=== PATIENT | male | born 2000 | race Caucasian/White ===

== ENCOUNTER 2020-11-17 07:43 | Outpatient (REF) | payer OTHER, SELFPAY | END 2020-11-17 07:44 | disposition home or self-care (01) | LOC: HO.LAB 07:43 | PROVIDERS: Visit Provider Internal Medicine | DX: Z20.822 Contact with and (suspected) exposure to COVID-19 (principal) | CPT/HCPCS: C9803; U0003; U0005 ==

== ENCOUNTER 2021-04-21 12:35 | Outpatient (REF) | payer OTHER, SELFPAY | END 2021-04-21 12:36 | disposition home or self-care (01) | LOC: HO.LAB 12:35 | PROVIDERS: Visit Provider Internal Medicine | DX: Z20.822 Contact with and (suspected) exposure to COVID-19 (principal) | CPT/HCPCS: C9803; U0003; U0005 ==

== ENCOUNTER 2025-02-25 17:06 | Emergency (ER) | payer SELFPAY ==
[2025-02-25 17:17] VITALS: BP 145/89; PULSE 89; RESP 18; TEMP 36.6; O2SAT 97; BMI 34.7
--- NOTE | 2025-02-25 17:57 | ED.GENADULT ---
HPI - General Adult General Chief complaint: Wound/Laceration Stated complaint: laceration lt wrist Time Seen by Provider: 02/25/25 17:53 Source: patient, RN notes reviewed and old records reviewed Mode of arrival: ambulatory Limitations: no limitations History of Present Illness ED Provider: Joshua [facility] narrative: Patient is a 24-year-old male presenting to the emergency department with laceration to left wrist on the ulnar side. States that he was attempting to fix a window when he accidentally cut himself. Unsure last Tdap. Denies any weakness, numbness, tingling. complaint: laceration Onset (ago): hour(s) Related Data Allergies Allergy/AdvReac Type Severity Reaction Status Date / Time No Known Allergies (No Known Allergy Verified 02/25/25 17:20 Allergies*) Review of Systems Review of Systems: as per hpi Yes all other systems are reviewed and are negative Constitutional: Constitutional: Reports as per HPI [facility] Social History Social History Advance Directives: No Advance Directives Information Provided: No Physical Exam ED Vital Signs: Vital Signs - 24 hr 02/25/25 17:17 02/25/25 18:42 Temperature 97.9 F 97.9 F Pulse Rate 89 89 Respiratory Rate 18 18 Blood Pressure 145/89 H 145/89 H Pulse Oximetry 97 97 Oxygen Delivery Method Room Air Room Air BMI result Body Mass Index 34.7 Vital signs have been reviewed and appear to be correct. Blood pressure normal. Heart rate normal. Respiratory rate normal. Temperature normal. Oxygen saturation normal. Const General: cooperative, healthy appearing and no acute distress Orientation/consciousness: oriented to person, oriented to place, oriented to time and patient oriented x3 Limitations: no limitations [facility] Head: Yes normocephalic and Yes atraumatic Ears: external ears normal General nose exam: Normal external nose present Face and sinus: Yes face symmetric Mouth: oropharynx normal and moist mucous membranes Throat: Yes uvula midline Eyes Pupils: Equal, round and reactive pupils present Neck Neck: Yes normal visual inspection and Yes supple Resp Effort & Inspection: normal respiratory effort and able to speak in complete sentences Auscultation: clear to auscultation bilaterally Cardio Rate: regular rate Rhythm: regular rhythm Heart sounds: S1 normal heart sound present and S2 normal heart sound present GI Palpation (GI): Soft to palpation and nontender Auscultation: normoactive bowel sounds General: Yes no CVA tenderness Back/Spine/Pelvis Back: no CVA tenderness Skin General skin exam: elasticity normal and turgor normal Neuro General: oriented to person, oriented to place, oriented to time, patient oriented x3, moves all extremities, no focal motor deficits and CN's II-XI intact bilaterally Cranial nerves: Yes Equal, round and reactive pupils present Cognition (Neuro): normal cognition Extrem General: Yes full ROM, Yes no pedal edema and Yes no calf tenderness Left upper extremity: wrist forearm distal lateral Details: normal to inspection, normal ROM, radial pulse present and other (2cm linear laceration to ulnar aspect of wrist) Psych Mental Status: mental status grossly normal Affect: normal affect Thought process: Normal thought process present Medications Administered Discontinued Medications Generic Name Dose Route Start Last Admin Trade Name Freq PRN Reason Stop Dose Admin Bacitracin 1 appl 02/25/25 17:56 02/25/25 18:03 Bacitracin Oint 0.9 Gm Packet TOPICAL 02/25/25 17:57 1 appl ONCE ONE Administration Protocol Diphtheria/Tetanus/Acell Pertussis 0.5 ml 02/25/25 17:58 02/25/25 18:03 Diphth,Pertus(Acell),Tet Adult 0.5 Ml Syringe IM 02/25/25 17:59 0.5 ml .ONCE ONE Administration Lidocaine HCl 5 ml 02/25/25 17:56 02/25/25 18:03 Lidocaine Hcl 1 % Mpf 5 Ml Vial INFILTRATI 02/25/25 17:57 5 ml ONCE ONE Administration Procedures Laceration Laceration 1: Site: upper extremity Side (If applicable): left Size (cm): 2 Description: linear Depth: simple, single layer Local Anesthetic: lidocaine 1% Amount of anesthesia used (mL): 3 Pre-repair: wound explored, irrigated extensively and deep structures intact Skin layer closed with: other (prolene) Size (cm): 5-0 Number of sutures: 6 Technique: simple, interrupted Medical Decision Making Medical Decision Making MDM Narrative: Patient is a 24-year-old male presenting to the emergency department with laceration to left wrist on the ulnar side. On exam patient is awake, A+Ox3, VS WNL, afebrile, normal neurological exam without focal deficits, physical exam findings as above. Given reported symptoms and physical exam findings, initial differential includes but is not limited to laceration. No evidence of tendon or ligamentous injury. Lac repaired as per procedure note, patient tolerated well. Tdap updated at today's visit. Wound care instructions and return precautions discussed at bedside. Patient verbalized understanding of and agreement with plan. Differential Diagnosis Differential Diagnoses: The differential diagnosis associated with the presentation includes as per mdm Admission/Observation Consideration of admission/observation: Escalation of care including admission/observation considered Patient would have been admitted to the hospital had their clinical presentation warranted hospital admission. External Record Review External record reviewed: Inpatient record, Office record and Outpatient record Discharge Plan Discharge Clinical Impression: Laceration of left wrist Patient Disposition: Home, Self-Care Instructions: Care For Your Stitches (DC), Laceration (DC), Stitches Removal (ED) Additional Instructions: You have been evaluated in the emergency department today for a laceration to your wrist. Your laceration was repaired in the emergency department with 6 sutures. Please keep the area surrounding the laceration clean and dry and keep dressing in place for the next 24 hours. After that please change the dressing and assess the wound daily. Do not submerge the wound in water until the stitches has been removed and the wound has fully healed (no washing dishes, swimming, hot tubs, etc. and ESPECIALLY no outdoor water). Keep the area out of direct sunlight for the next 6 months to help prevent scarring. You should have the sutures removed in 7-10 days. If you develop fever, redness, swelling at the site of your laceration, or thick yellow drainage please come back to the ER for a wound check. Interventions: ED Discharge Assessment Last Done: 02/25/25 18:42 Discharge Date/Time: 02/25/25 18:43 Print Language: Armenian
[2025-02-25] MEDS: Lidocaine HCl 1 % MPF 5 ML VIAL INFILTRATI (18:03)
[2025-02-25] MEDS: Diphth,Pertus(ACell),Tet Adult 0.5 ML SYRINGE IM (18:03)
--- OUTSIDE RECORDS SUMMARY | 2025-02-25 18:10 | XMS_ITS | Clinical Summary ---
Author Organization [facility] Address [address] [place] [phone] Phone Care Team Providers Care Humanities Department Chair Name Role Phone Lambert Rosa MD Primary Care Provider Unavailabl e Immunizations Immunization Administration Dates Next Due DTaP 5 05/08/2003, 1,1999,1999 ,1999 Hep B, ped/adol 11/15/2000,03/23/2000,1999 Hib (PRP-T) 06/18/2000,1999,1999 ,1999 IPV 05/08/2003,03/23/2000,1999 ,1999 Influenza, injectable, trivalent 008,06/17/2004,04/27/2003,07/19/2000 ,06/18/2000 MMR 05/08/2003,06/18/2000 Pneumococcal Conjugate 06/18/2000,03/23/2000 Varicella 09/24/2008,03/23/2000 Family History Relation Name Status Comments Mother Alive Mother: Alive a nd well Other Family history of Elevated cholesterol, Family history of Diabetes mellitus, Family history of Asthma, Family history of Migraines, Family history of Obesity Sister Alive Sister: Alive a nd well Social History Tobacco Use Types Packs/Day Years Used Date Smoking Tobacco: Never Assessed Sex and Gender Information Value Date Recorded Sex Assigned at Not on file Legal Sex Male 4:41 PM EDT Gender Identity Not on file Sexual Orientation Not on file Last Filed Vital Signs Vital Sign Reading Time Taken Comments Blood Pressure 90/62 11/25/2009 12:00 AM EDT Pulse - - Temperature 36.6 C (97.8 F) 11/16/2010 12:00 AM EDT Respiratory Rate - - Oxygen Saturation - - Inhaled Oxygen Concentration - - Weight 49.9 kg (110 lb) 11/16/2010 12:00 AM EDT Height 145.4 cm (4' 9.25 ) 11/25/2009 12:00 AM E DT Body Mass Index - - Plan of Treatment Health Maintenance Due Date Last Done Comments DTaP,Tdap,and Td Vaccines (6 - Tdap) 2010 05/08/2003, 10/08/2000, 1999, Additional history exists HPV Vaccines (1 - Male 3-dose series) 2014 COVID-19 Vaccine (1 - season) 2024 Influenza Vaccines (#1) 2025 07/18/19, 06/17/2004, 04/27/2003, Additional history exists HIB Vaccines Completed 06/18/2000, 10/08, 1999, Additional history exists Pneumococcal Vaccine Completed 06/18/2000, 03/23/20 Hepatitis B Vaccines Completed 11/15/2000, 03/23/2000, 1999 IPV Vaccines Completed 05/08/2003, 03/09, 1999, Additional history exists MMR Vaccines Completed 05/08/2003, 06/18/2000 Varicella Vaccines Completed 09/24/2008, 03/23/2000 Hepatitis A Vaccines Aged Out No long er eligible based on patient's age to complete this topic Men B Vaccine Aged Out No longer elig ible based on patient's age to complete this topic Meningococcal Vaccine Aged Out No robert tod eligible based on patient's age to complete this topic Care Teams Humanities Department Chair Relationship Specialty Start Date End Date Lambert Rosa MD PCP - General 02/16/17
[2025-02-25 18:42] VITALS: BP 145/89; PULSE 89; RESP 18; TEMP 36.6; O2SAT 97
== END 2025-02-25 18:43 | disposition home or self-care (01) ==
PROVIDERS: Emergency Provider Emergency Medicine Emergency Medical Services
DX: S61.512A Laceration without foreign body of left wrist, initial encounter (principal); M25.532 Pain in left wrist; W25.XXXA Contact with sharp glass, initial encounter; Y93.9 Activity, unspecified; Y92.9 Unspecified place or not applicable; Y99.8 Other external cause status; Z23 Encounter for immunization
CPT/HCPCS: 12001; 90471; 90715; 99282; 99284; J2003

== ENCOUNTER 2025-03-04 15:45 | Emergency (ER) | payer SELFPAY ==
[2025-03-04 15:48] VITALS: BP 130/78; PULSE 89; RESP 18; TEMP 36.8; O2SAT 97; BMI 34.3
--- NOTE | 2025-03-04 15:53 | ED.WOUNDLAC ---
HPI - Wound/Laceration General Chief Complaint: Wound/Laceration Stated Complaint: to remove stitches wrist Time Seen by Provider: 03/04/25 15:58 Source: patient and RN notes reviewed Mode of arrival: ambulatory Limitations: no limitations History of Present Illness ED Provider: Eda Monroy PA-C HPI narrative: This is a [id number]-hte-male who presents to the ER for suture removal. Pt states that 1 week ago he had lacerated his left wrist and had sutures placed. He states that he had no complications with the sutures, but does report increased redness starting this morning after applying antibiotic ointment on it. Reports no drainage. No fevers or chills. No other complaints or concerns at this time. Associated symptoms: none Related Data Previous Rx's ?Medication ?Instructions ?Recorded cephalexin 500 mg capsule 500 mg PO QID 5 days #20 caps 03/04/25 Allergies Allergy/AdvReac Type Severity Reaction Status Date / Time No Known Allergies (No Known Allergy Verified 03/04/25 15:50 Allergies*) Review of Systems Review of Systems: Yes all other systems are reviewed and are negative Constitutional: Constitutional: Reports as per [facility] Social History Social History Advance Directives: No Advance Directives Information Provided: No Do you have a plan to hurt others: No Plan Physical Exam Exam: Exam: General: Awake, alert, and oriented X3. No acute distress. HEENT: Normal inspection CVS: Normal heart rate and rhythm. Pulses normal. Respiratory: No respiratory distress Skin: Warm, dry, no rashes noted to exposed skin. Normal skin color. Normal skin turgor. Extremities: Full ROM of the left wrist without difficulty. Neuro: Oriented X 3. No motor deficit. No sensory deficit. Left wrist with well healing wound noted with mild erythema noted, sutures in place, no drainage. Vital Signs: Vital Signs: Last Vital Signs Temp 98.2 F 03/04/25 16:16 Pulse 89 03/04/25 16:16 Resp 18 03/04/25 16:16 BP 130/78 03/04/25 16:16 Pulse Ox 97 03/04/25 16:16 O2 Del Method Room Air 03/04/25 16:16 BMI result Body Mass Index 34.3 Medical Decision Making Medical Decision Making MDM Narrative: This is a 68-pfts-ror-male who presents to the ER with concerns of left wrist suture removal. On arrival, vss. Pt is well appearing under no acute distress. Wound is well healing however mild erythema noted, no evidence of dehiscence. Unclear if redness is from antibiotic ointment he used this morning. Discussed with my attending physician, Dr. Reyes. Concern for ?early infection therefore sutures removed as we do not want to trap infection if this is the case. pt tolerated procedure well. Discharged on keflex. Discussed return precautions. Given wound care instructions, Pt stable for d.c. Differential Diagnosis Differential Diagnoses: The differential diagnosis associated with the presentation includes cellulitis, wound dehiscence, suture removal, wound check Discharge Plan Discharge Clinical Impression: Visit for suture removal, Cellulitis Patient Disposition: Home, Self-Care Instructions: Stitches Removal (ED) Additional Instructions: You were seen in the ER for a suture removal. You do have some mild evidence of the start of a skin infection. Please take prescribed antibiotic as directed. Finish the entire course. Keep wound clean and dry. If any new or worsening symptoms occur including increased redness, swelling, fevers, worsening swelling, please seek emergent care. Prescriptions: New cephalexin 500 mg capsule 500 mg PO QID 5 Days Qty: 20 0RF Interventions: ED Discharge Assessment Last Done: 03/04/25 16:16 Discharge Date/Time: 03/04/25 16:16 Print Language: Bruneian
[2025-03-04 16:16] VITALS: BP 130/78; PULSE 89; RESP 18; TEMP 36.8; O2SAT 97
--- OUTSIDE RECORDS SUMMARY | 2025-03-04 17:01 | XMS_ITS | Clinical Summary ---
Author Organization [facility] Address [address] [place] [phone] Phone Care Team Providers Care Production Inspector Name Role Phone Lambert Rosa MD Primary [...] age to complete this topic Care Teams Production Inspector Relationship Specialty Start Date End Date Lambert Rosa MD PCP - General 02/16/17
--- OUTSIDE RECORDS SUMMARY | 2025-03-04 17:01 | XMS_ITS | Encounter Summary ---
Author Organization [facility] Address [address] [place] [phone] Phone Care Team Providers Care Steam Pressure Chamber Operator Name Role Phone Lambert Rosa MD Primary Care Provider Unavailabl e Encounter Details Date Type Department Care Team (Late st Contact Info) Description 02/22/2017 Conversion Encounter [place] - [address] [id number] Social History Tobacco Use Types Packs/Day Years Used Date Smoking Tobacco: Never Assessed Sex and Gender Information Value Date Recorded Sex Assigned at Not on file Legal Sex Male 4:41 PM EDT Gender Identity Not on file Sexual Orientation Not on file documented as of this encounter Plan of Treatment Not on file documented as of this encounter Visit Diagnoses Not on filedocumented in this encounter Care Teams Steam Pressure Chamber Operator Relationship Specialty Start Date End Date Lambert Rosa MD PCP - General 02/16/17 documented as of this encounter
--- OUTSIDE RECORDS SUMMARY | 2025-03-04 17:01 | XMS_ITS | Encounter Summary ---
Author Organization [facility] Address [address] [place] [phone] Phone Care Team Providers Care Sheriffs Officer Name Role Phone Lambert Rosa MD Primary Care Provider Unavailabl e Encounter Details Date Type Department Care Team (Late st Contact Info) Description 10/04/2011 Documentation [facility] Family Medicine [address] [place], [place] [phone] Family Medicine, Physician [address] [place] [address] Social History Tobacco Use Types Packs/Day Years [...] on filedocumented in this encounter Care Teams Sheriffs Officer Relationship Specialty Start Date End Date Lambert Rosa MD PCP - General 02/16/17 documented as of this encounter
== END 2025-03-04 16:16 | disposition home or self-care (01) ==
PROVIDERS: Emergency Provider Student in an Organized Health Care Education/Training Program
DX: L03.114 Cellulitis of left upper limb (principal); Z48.02 Encounter for removal of sutures
CPT/HCPCS: 99282; 99283